=== PATIENT | male | born 1960 | race Caucasian/White ===

== ENCOUNTER 2018-12-24 12:16 | Observation (INO) | payer OTHER ==
[~2018-12-24] VITALS: Ht 167.6 cm; Wt 110.0 kg
[2018-12-24 12:31] LABS: BASOPHILS % (AUTO) 0.5 % (0.0-5.0); EOSINOPHILS % (AUTO) 1.2 % (0.0-8.0); HEMATOCRIT 38.6 % (42-54); LYMPHOCYTES % (AUTO) 32.6 % (21.0-51.0); MEAN CORPUSCULAR HEMOGLOBIN 28.7 pg (27.0-33.0); MEAN CORPUSCULAR HGB CONC 35.1 g/dL (32.0-36.0); MEAN CORPUSCULAR VOLUME 81.8 fL (79-99); MONOCYTES % (AUTO) 8.3 % (3.0-13.0); NEUTROPHILS % (AUTO) 57.4 % (40.0-77.0); PLATELET COUNT (AUTO) 267 K/uL (130-400); RED BLOOD CELL COUNT(AUTO) 4.72 MIL/uL (4.50-6.20); RED CELL DISTRIBUTION WIDTH 14.6 % (11.0-15.5); WHITE BLOOD COUNT (AUTO) 9.5 K/uL (4.8-10.8)
[2018-12-24] MEDS ORDERED: ASPIRIN 81MG TAB.CHEW ONE (12:47)
[2018-12-24] MEDS ORDERED: NITROGLYCERIN 1GM/1 INCH PACKET TD ONE (12:48)
[2018-12-24 12:50] LABS: BILIRUBIN,TOTAL 0.4 mg/dL (0.2-1.0); TOTAL PROTEIN, SERUM 7.2 g/dL (6.0-8.3)
[2018-12-24 14:21] LABS: APPEARANCE,URINE Clear (CLEAR); BILIRUBIN,URINE Negative (NEGATIVE); COLOR,URINE Yellow (YELLOW); GLUCOSE, URINE (UA) Negative (NEGATIVE); KETONES,URINE Negative (NEGATIVE); LEUKOCYTE ESTERASE ,URINE Negative (NEGATIVE); NITRATE,URINE Negative (NEGATIVE); OCCULT BLOOD,URINE Negative (NEGATIVE); PH,URINE 5.5 (5.0-8.0); PROTEIN,URINE Negative (NEGATIVE); UROBILINOGEN,URINE 0.2 mg/dL (0.2-1.0)
[2018-12-24] MEDS ORDERED: IOHEXOL 350 MG/ML 100ML INFUS..BTL IV ONE (14:40)
[2018-12-24] MEDS ORDERED: SODIUM CHLORIDE 0.9% 1000ML 1,000 ML IV ONE (14:45)
[2018-12-24] MEDS ORDERED: ONDANSETRON HCL 4 MG/2 ML VIAL IV PRN (15:45)
[2018-12-24] MEDS ORDERED: POTASSIUM CHLORIDE 20MEQ/100ML 100 ML IV PRN (15:45)
[2018-12-24] MEDS ORDERED: POTASSIUM CHLORIDE 10MEQ/100ML 100 ML IV PRN (15:45)
[2018-12-24] MEDS ORDERED: ACETAMINOPHEN 325 MG TAB PO PRN ×2 (15:45)
[2018-12-24] MEDS ORDERED: DEXTROSE 50%-WATER 50 ML DISP.SYRIN IV PRN (15:45)
[2018-12-24] MEDS ORDERED: LACTULOSE 20 GM/30 ML UDCUP PO PRN (15:45)
[2018-12-24] MEDS ORDERED: DIPHENHYDRAMINE HCL 25 MG CAPSULE PO PRN (15:45)
[2018-12-24] MEDS ORDERED: LIDOCAINE HCL-MPF 1% 2ML VIAL IVP PRN ×2 (15:45)
[2018-12-24] MEDS ORDERED: HYDRALAZINE HCL 20 MG/ML VIAL IV PRN (15:45)
[2018-12-24] MEDS ORDERED: GLUCAGON 1MG KIT 1 MG ML IM PRN (15:45)
[2018-12-24] MEDS ORDERED: POTASSIUM CHLORIDE 20 MEQ ERTAB PO PRN ×2 (15:45)
[2018-12-24] MEDS ORDERED: NITROGLYCERIN 0.4 MG SL TAB SL PRN (15:45)
[2018-12-24] MEDS ORDERED: POTASSIUM CHLORIDE 10% ELIXIR 20 MEQ/15 ML UDCUP PO PRN ×2 (15:45)
[2018-12-24 17:09] LABS: HEMOGLOBIN A1C 6.5 % (4.0-6.0)
[2018-12-24 17:19] LABS: ALANINE AMINOTRANSFERASE 22 U/L (12-78); ALBUMIN 3.6 g/dL (3.5-5.0); ASPARTATE AMINOTRANSFERASE 19 U/L (10-37); BILIRUBIN,TOTAL 0.3 mg/dL (0.2-1.0); CARBON DIOXIDE 28 mmol/L (21-32); CHLORIDE 104 mmol/L (101-111); CREATINE KINASE, TOTAL 71 U/L (21-232); CREATININE 0.9 mg/dL (0.5-1.5); GLOMERULAR FILTR. RATE CALC 92 mL/min (>60); GLUCOSE,RANDOM 70 mg/dL (70-105); MYOGLOBIN 37 ng/mL (10-92); POTASSIUM 3.8 mmol/L (3.5-5.1); SODIUM SERUM 141 mmol/L (136-145); TOTAL PROTEIN, SERUM 7.4 g/dL (6.0-8.3); TROPONIN I < 0.04 ng/mL (0.00-0.06); UREA NITROGEN, BLOOD 9 mg/dL (7-18)
[2018-12-24] MEDS: INSULIN HUMULIN R 100 UNIT/ML 3ML SQ SCH (21:00)
[2018-12-24] MEDS: METOPROLOL TARTRATE 25 MG TAB PO SCH (21:00)
[2018-12-24] MEDS: FAMOTIDINE 20MG TAB 20 MG TAB PO SCH (21:00)
[2018-12-24] MEDS ORDERED: ACETAMINOPHEN 325 MG TAB ONE (21:34)
[2018-12-24] MEDS ORDERED: FAMOTIDINE 20MG TAB 20 MG TAB ONE (21:34)
[2018-12-24 23:24] VITALS: BP 108/74
[2018-12-25 03:46] VITALS: BP 113/67
[2018-12-25] MEDS: INSULIN HUMULIN R 100 UNIT/ML 3ML SQ SCH (06:54)
[2018-12-25 07:30] VITALS: BP 111/68
[2018-12-25] MEDS ORDERED: ASPIRIN 325 MG TABLET PO SCH (09:00)
[2018-12-25] MEDS: METOPROLOL TARTRATE 25 MG TAB PO SCH (09:04)
[2018-12-25] MEDS: FAMOTIDINE 20MG TAB 20 MG TAB PO SCH (09:04)
[2018-12-25] MEDS ORDERED: TRAZ-187 PO (10:30)
[2018-12-25] MEDS ORDERED: PRAV40TA3 PO (10:30)
[2018-12-25] MEDS ORDERED: TRAM50TA4 PO (10:30)
[2018-12-25] MEDS ORDERED: GABA-533 PO (10:30)
[2018-12-25] MEDS ORDERED: GLIM2TAB3 PO (10:30)
[2018-12-25] MEDS ORDERED: TAMS-1 PO (10:30)
[2018-12-25] MEDS ORDERED: ASPI-555 PO (10:30)
[2018-12-25] MEDS ORDERED: SILD50TA PO (10:30)
[2018-12-25] MEDS ORDERED: LISI-613 PO (10:30)
[2018-12-25 11:00] VITALS: BP 108/52
--- NOTE | 2018-12-25 13:20 | NUR ---
PATIENT VOICED CONCERNS ABOUT WAITING TOO LONG TO BE FED AND MD NOT EXPLAINING PLAN OF CARE. I INFORMED PATIENT THAT MARTHA GRAFF IS CHECKING WITH HER SUPERVISING MD IF THEY WILL SEND HIM FOR STRESS TEST. PATIENT SAID THAT HE HAS BEEN TOLD THAT A RN TESTING WILL SEE HIM TODAY SINCE LAST NIGHT IN ER. I INFORMED PATIENT THAT THERE IS NO ORDER FOR CARDIOLOGY CONSULT AT THIS TIME. HE VOICED THAT HE PLANS TO SIGN HIMSELF OUT. I TOLD THE PATIENT THAT I WILL CALL MARTHA GRAFF TO ASK ONCE AGAIN IF A STRESS TEST IS PLANNED FOR TODAY OR IF DIET CAN BE ORDERED. HE SAID HE WILL WAIT.
--- NOTE | 2018-12-25 13:30 | NUR ---
MARTHA GRAFF IS MAKING HER ROUNDS. SHE EXPLAINS TO PATIENT THAT SHE HAD ORDERED FOR CARDIOLOGY TO BE CONSULTED AND FOR DIET TO BE STARTED. WE ARE WAITING ON CONSULT TO COME IN FOR RECOMMENDATIONS. PATIENT VOICED ONCE AGAIN HIS COMPLAINTS ABOUT WAITING TOO LONG FOR DIET TO BE STARTED AND THAT STRESS TEST WAS NEVER DONE IF MD HAD PLANNED TO DO ONE. MARTHA EXPLAINED IN DETAIL PLAN OF CARE. PATIENT WAS GIVEN A LUNCH TRAY.
--- NOTE | 2018-12-25 14:18 | NUR ---
PATIENT SIGNED AMA. EXPLAINED TO HIM THE RISKS AND CONSEQUENCES THAT WHICH INCLUDE HEART ATTACK, STROKE, AND/OR . INVOLVED IN LEAVING HOSPITAL AGAINST MEDICAL ADVICE. TELE PACK REMOVED AND RETURNED. RIGHT AC IV DISCONTINUED. TIP WAS INTACT. ALL BELONGINGS WERE PACKED.
--- NOTE | 2018-12-25 14:19 | NUR ---
MADE MARTHA MONROY NP AWARE THAT PATIENT SIGNED HIMSELF OUT AMA.
--- NOTE | 2018-12-25 17:00 | NUR ---
ADVISED OLEG HENRY CM ASSESSMENT DONE Addendum: 12/26/18 at 1932 by OTONIEL HERNANDEZ RN CM Amended: Links added.
== END 2018-12-25 14:00 | disposition left against medical advice (07) ==
LOC: EDH 12:16 → EDHIP 14:39 → 4CH 19:49
PROVIDERS: ADMIT Internal Medicine Critical Care Medicine; ATTEND Internal Medicine Critical Care Medicine
DX: I20.0 Unstable angina (principal); I10 Essential (primary) hypertension; E11.9 Type 2 diabetes mellitus without complications; E78.5 Hyperlipidemia, unspecified; M79.7 Fibromyalgia; Z83.3 Family history of diabetes mellitus; Z98.84 Bariatric surgery status; Z90.89 Acquired absence of other organs; Z90.49 Acquired absence of other specified parts of digestive tract; Z79.899 Other long term (current) drug therapy
CPT/HCPCS: 36415; 71045; 71275; 80053 ×2; 81003; 82550 ×2; 82948 ×2; 83036; 83874; 83880; 84484 ×3; 85025; 85378; 93005 ×4; 99284; G0378 ×23; J7030; Q9967

== ENCOUNTER → 2020-02-01 | Outpatient (CLI) | payer OTHER ==
[~2020-02-01] MED LIST: ASPI-556 PO; GABA-533 PO; GLIM2TAB30 PO; LISI-613 PO; PRAV40TA3 PO; SILD50TA PO; TAMS-1 PO; TRAM50TA4 PO; TRAZ-187 PO
== END | disposition home or self-care (01) ==
LOC: OIH 10:57
PROVIDERS: ATTEND Family Medicine
DX: R07.9 Chest pain, unspecified (principal); I10 Essential (primary) hypertension; M47.814 Spondylosis without myelopathy or radiculopathy, thoracic region
CPT/HCPCS: 71046

== ENCOUNTER 2020-09-02 17:17 | Observation (INO) | payer OTHER ==
[~2020-09-02] VITALS: Ht 167.6 cm; Wt 118.3 kg
[~2020-09-02 17:17] MED LIST changes: -LISI-613 PO; +LISI20TA24 PO
[2020-09-02 18:15] LABS: APPEARANCE,URINE Clear (CLEAR); BILIRUBIN,URINE Negative (NEGATIVE); COLOR,URINE Yellow (YELLOW); GLUCOSE, URINE (UA) Negative (NEGATIVE); KETONES,URINE Negative (NEGATIVE); LEUKOCYTE ESTERASE ,URINE Negative (NEGATIVE); NITRATE,URINE Negative (NEGATIVE); OCCULT BLOOD,URINE Negative (NEGATIVE); PROTEIN,URINE Negative (NEGATIVE); UROBILINOGEN,URINE 0.2 mg/dL (0.2-1.0)
[2020-09-02 18:23] LABS: BASOPHILS % (AUTO) 0.4 % (0.0-5.0); EOSINOPHILS % (AUTO) 1.6 % (0.0-8.0); HEMATOCRIT 36.4 % (42-54); LYMPHOCYTES % (AUTO) 33.2 % (21.0-51.0); MEAN CORPUSCULAR HEMOGLOBIN 28.3 pg (27.0-33.0); MEAN CORPUSCULAR HGB CONC 34.9 g/dL (32.0-36.0); MEAN CORPUSCULAR VOLUME 81.3 fL (79-99); NEUTROPHILS % (AUTO) 57.1 % (40.0-77.0); PLATELET COUNT (AUTO) 237 K/uL (130-400); RED BLOOD CELL COUNT(AUTO) 4.48 MIL/uL (4.50-6.20); RED CELL DISTRIBUTION WIDTH 15.1 % (11.0-15.5); WHITE BLOOD COUNT (AUTO) 9.1 K/uL (4.8-10.8)
[2020-09-02] MEDS ORDERED: DEXTROSE 50%-WATER 50 ML DISP.SYRIN IV ONE (18:35)
[2020-09-02 18:39] LABS: ALBUMIN 3.7 g/dL (3.5-5.0); BILIRUBIN,TOTAL 0.2 mg/dL (0.2-1.0); CREATININE 0.9 mg/dL (0.5-1.5); POTASSIUM 4.1 mmol/L (3.5-5.1)
[2020-09-02] MEDS ORDERED: ACETAMINOPHEN-CODEINE 300/30MG TAB PO PRN (19:45)
[2020-09-02] MEDS ORDERED: MAG HYDROX/AL HYDROX/SIMETH ES 30 ML SUSP UDCUP PO PRN (19:45)
[2020-09-02] MEDS ORDERED: ONDANSETRON HCL 4 MG/2 ML VIAL IV PRN (19:45)
[2020-09-02] MEDS ORDERED: ACETAMINOPHEN 325 MG TAB PO PRN ×2 (19:45)
[2020-09-02] MEDS ORDERED: NEOMY SULF/BACITRA/POLYMYXIN B 1 EACH PACKET TP SCH (19:45)
[2020-09-02] MEDS ORDERED: LACTULOSE 20 GM/30 ML UDCUP PO PRN (19:45)
[2020-09-02 20:08] LABS: ACETAMINOPHEN < 1 mcg/mL (10-29); ALCOHOL, BLOOD 114 mg/dL (0-10); SALICYLATE < 2.8 mg/dL (2.8-20.0)
[2020-09-02 20:15] LABS: AMPHET/METH SCREEN,URINE NEGATIVE (NEGATIVE); BARBITURATE SCREEN, URINE NEGATIVE (NEGATIVE); BENZODIAZEPINES SCREEN,URINE NEGATIVE (NEGATIVE); CANNABINOID SCREEN,URINE NEGATIVE (NEGATIVE); COCAINE SCREEN,URINE NEGATIVE (NEGATIVE); OPIATE SCREEN,URINE NEGATIVE (NEGATIVE); PHENCYCLIDINE SCREEN,URINE NEGATIVE (NEGATIVE)
[2020-09-02] MEDS ORDERED: MORPHINE SULFATE 2 MG/ML 1ML SYG IV PRN (20:15)
[2020-09-02] MEDS ORDERED: GLUCAGON 1MG KIT 1 MG ML IM PRN (20:45)
[2020-09-02] MEDS ORDERED: DEXTROSE 50%-WATER 50 ML DISP.SYRIN IV PRN (20:45)
[2020-09-02] MEDS: FAMOTIDINE 20MG TAB 20 MG TAB PO SCH (21:00)
[2020-09-03] MEDS ORDERED: MORPHINE SULFATE 2 MG/ML 1ML SYG ONE (01:54)
[2020-09-03 04:35] VITALS: BP 147/82
[2020-09-03 06:54] LABS: BASOPHILS % (AUTO) 0.6 % (0.0-5.0); HEMATOCRIT 36.7 % (42-54); LYMPHOCYTES % (AUTO) 30.6 % (21.0-51.0); MEAN CORPUSCULAR HEMOGLOBIN 27.1 pg (27.0-33.0); MEAN CORPUSCULAR HGB CONC 32.7 g/dL (32.0-36.0); MONOCYTES % (AUTO) 10.2 % (3.0-13.0); NEUTROPHILS % (AUTO) 56.3 % (40.0-77.0); PLATELET COUNT (AUTO) 213 K/uL (130-400); RED BLOOD CELL COUNT(AUTO) 4.42 MIL/uL (4.50-6.20); RED CELL DISTRIBUTION WIDTH 15.5 % (11.0-15.5); WHITE BLOOD COUNT (AUTO) 8.8 K/uL (4.8-10.8)
[2020-09-03 07:09] LABS: POTASSIUM 4.3 mmol/L (3.5-5.1)
[2020-09-03 08:00] VITALS: BP 135/77
[2020-09-03] MEDS ORDERED: ASPIRIN 81 MG EC TAB PO SCH (09:00)
[2020-09-03] MEDS ORDERED: ENOXAPARIN SODIUM 40 MG/0.4 ML SYRINGE SQ SCH (09:00)
[2020-09-03] MEDS ORDERED: LISINOPRIL 20 MG TABLET PO SCH (09:00)
[2020-09-03] MEDS ORDERED: TAMSULOSIN HCL 0.4 MG CAP.ER.24H PO SCH (09:00)
[2020-09-03] MEDS ORDERED: THIAMINE HCL 100 MG, FOLIC ACID 1 MG, M.V.I. IV [ADULT] 10 ML in SODIUM CHLORIDE 0.9% 1... IV SCH (09:30)
[2020-09-03] MEDS ORDERED: PHARMACY COMMUNICATION MISC PRN (09:30)
[2020-09-03] MEDS ORDERED: CHLORDIAZEPOXIDE HCL 25 MG CAP PO PRN (09:30)
[2020-09-03] MEDS ORDERED: HYDROCODONE/ACETAMINOPHEN 5/325 MG TAB PO PRN (09:30)
[2020-09-03 10:06] LABS: HEMOGLOBIN A1C 5.9 % (4.0-6.0)
[2020-09-03 12:00] VITALS: BP 148/86
[2020-09-03 16:00] VITALS: BP 137/78
[2020-09-03] MEDS ORDERED: TRAZODONE HCL 50 MG TAB PO PRN (16:30)
[2020-09-03] MEDS: FAMOTIDINE 20MG TAB 20 MG TAB PO SCH (20:19)
[2020-09-07] MEDS ORDERED: FOLI1 PO (09:56)
[2020-09-07] MEDS ORDERED: LEVO500T89 PO (09:56)
[2020-09-07] MEDS ORDERED: CALC-1009 PO (09:56)
[2020-09-07] MEDS ORDERED: FAMO20TA8 PO (09:56)
[2020-09-07] MEDS ORDERED: TRAM50TA4 PO (09:57)
== END 2020-09-03 21:06 | disposition left against medical advice (07) ==
LOC: EDH 17:17 → EDHIP 19:50 → 3BH 09-03 03:37
PROVIDERS: ADMIT Internal Medicine; ATTEND Internal Medicine
DX: S09.90XA Unspecified injury of head, initial encounter (principal); S20.411A Abrasion of right back wall of thorax, initial encounter; E11.649 Type 2 diabetes mellitus with hypoglycemia without coma; R41.3 Other amnesia; M25.511 Pain in right shoulder; E11.40 Type 2 diabetes mellitus with diabetic neuropathy, unspecified; F32.9 Major depressive disorder, single episode, unspecified; M79.7 Fibromyalgia; I10 Essential (primary) hypertension; E66.01 Morbid (severe) obesity due to excess calories; M17.0 Bilateral primary osteoarthritis of knee; Z90.49 Acquired absence of other specified parts of digestive tract; Z96.653 Presence of artificial knee joint, bilateral; Z98.84 Bariatric surgery status; Z79.82 Long term (current) use of aspirin; Z79.84 Long term (current) use of oral hypoglycemic drugs; Z79.899 Other long term (current) drug therapy; W18.39XA Other fall on same level, initial encounter; Y93.89 Activity, other specified; Y92.89 Other specified places as the place of occurrence of the external cause; Z68.41 Body mass index [BMI] 40.0-44.9, adult
CPT/HCPCS: 36415 ×2; 70450; 71045; 72125; 73000; 73010; 73030; 73070; 73522; 73560; 80048; 80053; 80305; 81003; 82948 ×2; 83036; 84443; 84484; 85025 ×2; 93005; 96365; 96366; 96372; 97039 ×2; 97161; 99285; G0378 ×25; G0481; G8978; G8979; G8980; G8981; G8982; G8983; J1650; J3411; J3490; J7030; J7070; 96374

== ENCOUNTER 2020-09-08 11:32 | Day surgery (SDC) | payer OTHER ==
[2020-09-05 10:32] LABS: BASOPHILS % (AUTO) 0.7 % (0.0-5.0); EOSINOPHILS % (AUTO) 1.6 % (0.0-8.0); HEMATOCRIT 37.6 % (42-54); LYMPHOCYTES % (AUTO) 30.9 % (21.0-51.0); MEAN CORPUSCULAR HEMOGLOBIN 28.5 pg (27.0-33.0); MEAN CORPUSCULAR HGB CONC 33.8 g/dL (32.0-36.0); MEAN CORPUSCULAR VOLUME 84.3 fL (79-99); MONOCYTES % (AUTO) 9.5 % (3.0-13.0); NEUTROPHILS % (AUTO) 56.8 % (40.0-77.0); PLATELET COUNT (AUTO) 231 K/uL (130-400); RED BLOOD CELL COUNT(AUTO) 4.46 MIL/uL (4.50-6.20); RED CELL DISTRIBUTION WIDTH 15.7 % (11.0-15.5); WHITE BLOOD COUNT (AUTO) 7.4 K/uL (4.8-10.8)
[2020-09-05 10:35] LABS: CREATININE 1.2 mg/dL (0.5-1.5); POTASSIUM 4.2 mmol/L (3.5-5.1)
[2020-09-05 10:40] LABS: INR 0.98 (0.85-1.15); PROTHROMBIN TIME 10.7 SEC (9.6-11.6)
[2020-09-05 10:42] LABS: APPEARANCE,URINE Clear (CLEAR); BILIRUBIN,URINE Negative (NEGATIVE); COLOR,URINE Yellow (YELLOW); GLUCOSE, URINE (UA) Negative (NEGATIVE); KETONES,URINE Negative (NEGATIVE); LEUKOCYTE ESTERASE ,URINE Negative (NEGATIVE); NITRATE,URINE Negative (NEGATIVE); OCCULT BLOOD,URINE Negative (NEGATIVE); PROTEIN,URINE Negative (NEGATIVE)
[2020-09-05 10:42] LABS: PARTIAL THROMBOPLASTIN TIME 26.2 SEC (26.3-35.5)
[2020-09-07 07:58] VITALS: BP 143/80
[2020-09-08] VITALS (14 sets, daily range): BP systolic 108–128; BP diastolic 54–73
[~2020-09-08] VITALS: Ht 167.6 cm; Wt 118.3 kg
[~2020-09-08 11:32] MED LIST changes: -ASPI-556 PO; +CALC-1009 PO; +CEFTRIAXONE SODIUM 1 GM IVP ONE; +FAMO20TA8 PO; +FOLI1 PO; +GENTAMICIN 80 MG/NS 100 ML PB 100 ML IV ONE; +LEVO500T89 PO; -SILD50TA PO; -TRAZ-187 PO
[2020-09-08] MEDS ORDERED: SODIUM CHLORIDE 0.9% 1000ML 1,000 ML IV ONE (11:45)
[2020-09-08] MEDS ORDERED: CEFTRIAXONE SODIUM 1 GM ONE (11:46)
[2020-09-08] MEDS ORDERED: GENTAMICIN 80 MG/NS 100 ML PB 100 ML IV SCH (12:00)
[2020-09-08] MEDS ORDERED: CEFTRIAXONE SODIUM 1 GM IVP SCH (12:00)
[2020-09-08] MEDS ORDERED: SUCCINYLCHOLINE CHLORIDE 20 MG/ML 10 ML VIAL ONE (14:42)
[2020-09-08] MEDS ORDERED: LIDOCAINE PF 2% 5ML ABBOJECT ONE (14:42)
[2020-09-08] MEDS ORDERED: DEXAMETHASONE SOD PHOSPHATE 10MG/ML 1ML VIAL ONE (14:42)
[2020-09-08] MEDS ORDERED: MIDAZOLAM HCL 1 MG/ML 2ML VIAL ONE (14:43)
[2020-09-08] MEDS ORDERED: PROPOFOL 10 MG/ML 20ML VIAL IV ONE (14:43)
[2020-09-08] MEDS ORDERED: GLYCOPYRROLATE 1 MG/5 ML SYRINGE ONE (14:43)
[2020-09-08] MEDS ORDERED: ROCURONIUM 10MG/1ML SYR 10 MG/ML ML ONE (14:43)
[2020-09-08] MEDS ORDERED: NEOSTIGMINE 5MG/5ML SYR IV ONE (14:43)
[2020-09-08] MEDS ORDERED: ONDANSETRON HCL 4 MG/2 ML VIAL ONE (14:43)
[2020-09-08] MEDS ORDERED: FENTANYL CITRATE PF 50 MCG/1 ML 2ML VIAL ONE (14:44)
[2020-09-08] MEDS ORDERED: EPHEDRINE SULFATE 50 MG/ML AMPULE ONE (17:00)
== END 2020-09-08 18:45 | disposition home or self-care (01) ==
LOC: DAH 11:32
PROVIDERS: ATTEND Urology
DX: N40.1 Benign prostatic hyperplasia with lower urinary tract symptoms (principal); R39.12 Poor urinary stream; G47.33 Obstructive sleep apnea (adult) (pediatric); E11.9 Type 2 diabetes mellitus without complications; K21.9 Gastro-esophageal reflux disease without esophagitis; Z79.01 Long term (current) use of anticoagulants; Z79.899 Other long term (current) drug therapy; Z20.828 Contact with and (suspected) exposure to other viral communicable diseases
CPT/HCPCS: 36415; 52450; 71045; 80048; 81003; 82948 ×2; 85025; 85610; 85730; 87088; 93005; A4215; A4221; A4222; A4223; A4354; A4358; A4663; A6260; C1769; C9803; J0330; J0696; J1100; J1580; J2001; J2250; J2405; J2704; J2710; J3010; J3490 ×2; J7030; J7120; U0003

== ENCOUNTER 2021-12-13 18:00 | Emergency (ER) | payer MEDICARE, OTHER ==
[~2021-12-13] VITALS: Ht 165.1 cm; Wt 158.8 kg
[~2021-12-13 18:00] MED LIST changes: -CEFTRIAXONE SODIUM 1 GM IVP ONE; -GENTAMICIN 80 MG/NS 100 ML PB 100 ML IV ONE; +LEVO-70 PO; -LEVO500T89 PO
[2021-12-13] MEDS ORDERED: ROCURONIUM BROMIDE 10MG/1ML 5ML VL IV ONE (18:01)
[2021-12-13] MEDS ORDERED: ETOMIDATE 20MG VIAL IVP ONE (18:01)
[2021-12-13 18:16] LABS: BASOPHILS % (AUTO) 0.3 % (0.0-5.0); EOSINOPHILS % (AUTO) 1.2 % (0.0-8.0); HEMATOCRIT 37.2 % (42-54); LYMPHOCYTES % (AUTO) 38.1 % (21.0-51.0); MEAN CORPUSCULAR HEMOGLOBIN 28.8 pg (27.0-33.0); MEAN CORPUSCULAR HGB CONC 34.9 g/dL (32.0-36.0); MEAN CORPUSCULAR VOLUME 82.5 fL (79-99); NEUTROPHILS % (AUTO) 53.9 % (40.0-77.0); PLATELET COUNT (AUTO) 261 K/uL (130-400); RED BLOOD CELL COUNT(AUTO) 4.51 MIL/uL (4.50-6.20); RED CELL DISTRIBUTION WIDTH 14.7 % (11.0-15.5); WHITE BLOOD COUNT (AUTO) 8.6 K/uL (4.8-10.8)
[2021-12-13 18:25] LABS: CREATININE 0.9 mg/dL (0.5-1.5); POTASSIUM 3.5 mmol/L (3.5-5.1)
[2021-12-13] MEDS: ETOMIDATE 20MG VIAL IVP SCH ×2 (18:26→18:34)
[2021-12-13 18:27] LABS: INR 0.96 (0.85-1.15); PROTHROMBIN TIME 10.5 SEC (9.6-11.6)
[2021-12-13 18:28] LABS: PARTIAL THROMBOPLASTIN TIME 26.6 SEC (26.3-35.5)
[2021-12-13] MEDS ORDERED: MIDAZOLAM HCL 1 MG/ML 2ML VIAL ONE (18:30)
[2021-12-13] MEDS ORDERED: FENTANYL CITRATE PF 50 MCG/1 ML 2ML VIAL ONE (18:30)
[2021-12-13 18:33] LABS: ALBUMIN 3.9 g/dL (3.5-5.0); TOTAL PROTEIN, SERUM 7.4 g/dL (6.0-8.3)
[2021-12-13] MEDS ORDERED: FENTANYL 2500MCG+NS 250ML 250 ML IV ONE (18:33)
[2021-12-13 18:35] LABS: CREATINE KINASE, TOTAL 91 U/L (21-232); LDL DIRECT 142 mg/dL (0-99)
[2021-12-13 18:39] LABS: APPEARANCE,URINE CLEAR (CLEAR); BILIRUBIN,URINE NEGATIVE (NEGATIVE); COLOR,URINE YELLOW (YELLOW); GLUCOSE, URINE (UA) >=1000 mg/dL (NEGATIVE); KETONES,URINE NEGATIVE (NEGATIVE); LEUKOCYTE ESTERASE ,URINE NEGATIVE (NEGATIVE); NITRATE,URINE NEGATIVE (NEGATIVE); OCCULT BLOOD,URINE NEGATIVE (NEGATIVE); PH,URINE 5.5 (5.0-8.0); PROTEIN,URINE NEGATIVE (NEGATIVE); UROBILINOGEN,URINE 0.2 mg/dL (0.2-1.0)
[2021-12-13 18:46] LABS: AMPHET/METH SCREEN,URINE NEGATIVE (NEGATIVE); BARBITURATE SCREEN, URINE NEGATIVE (NEGATIVE); BENZODIAZEPINES SCREEN,URINE NEGATIVE (NEGATIVE); CANNABINOID SCREEN,URINE NEGATIVE (NEGATIVE); COCAINE SCREEN,URINE NEGATIVE (NEGATIVE); PHENCYCLIDINE SCREEN,URINE NEGATIVE (NEGATIVE)
[2021-12-13] MEDS ORDERED: PROPOFOL 1000 MG/100 ML 100 ML IV ONE (18:59)
[2021-12-13] MEDS ORDERED: MIDAZOLAM 50MG-0.9% NS 50ML 50 ML IV SCH (19:00)
[2021-12-13 19:04] LABS: RBC,URINE 0-1 /HPF (0-1); WBC,URINE 0-1 /HPF (0-1)
[2021-12-13 19:05] LABS: BACTERIA,URINE Rare /HPF (None Seen); SQUAMOUS EPITHELIAL CELL,UR None Seen /HPF (0-2)
[2021-12-13] MEDS ORDERED: IOHEXOL 350 MG/ML 100ML INFUS..BTL IV ONE (19:20)
[2021-12-13] MEDS ORDERED: PROPOFOL 1000 MG/100 ML 100 ML IV SCH (19:30)
[2021-12-14 00:12] VITALS: BP 102/60
[2021-12-16 15:11] LABS: OPIATES SCREEN URINE Negative ng/mL (Cutoff=300)
== END 2021-12-14 01:36 | disposition short-term general hospital (02) ==
LOC: EDH 18:00
DX: R41.82 Altered mental status, unspecified (principal); R29.810 Facial weakness; R51.9 Headache, unspecified; Z20.822 Contact with and (suspected) exposure to COVID-19; Z79.899 Other long term (current) drug therapy
CPT/HCPCS: 99285; 82550; 83721; 84484; 80053; 83880; 80305; 85025; 85610; 85730; 87804 ×2; 81001; 36415; 87635; 71045 ×3; 70450; 70496; 70498; 93005 ×2; 31500; C9803; J3010; J3490 ×2; J2704; Q9967; A9900; 94002; 94003; J2250

== ENCOUNTER → 2021-12-20 | Outpatient (CLI) | payer OTHER ==
[2021-12-20 14:25] LABS: BASOPHILS % (AUTO) 0.5 % (0.0-5.0); EOSINOPHILS % (AUTO) 2.2 % (0.0-8.0); HEMATOCRIT 40.1 % (42-54); LYMPHOCYTES % (AUTO) 32.3 % (21.0-51.0); MEAN CORPUSCULAR HEMOGLOBIN 28.3 pg (27.0-33.0); MEAN CORPUSCULAR HGB CONC 33.4 g/dL (32.0-36.0); MEAN CORPUSCULAR VOLUME 84.8 fL (79-99); MONOCYTES % (AUTO) 6.3 % (3.0-13.0); NEUTROPHILS % (AUTO) 58.4 % (40.0-77.0); PLATELET COUNT (AUTO) 277 K/uL (130-400); RED BLOOD CELL COUNT(AUTO) 4.73 MIL/uL (4.50-6.20); RED CELL DISTRIBUTION WIDTH 14.4 % (11.0-15.5); WHITE BLOOD COUNT (AUTO) 7.8 K/uL (4.8-10.8)
[2021-12-20 14:37] LABS: HEMOGLOBIN A1C 9.1 % (4.0-6.0)
[2021-12-20 14:57] LABS: B-TYPE NATRIURETIC PEPTIDE 13 pg/mL (0-100)
[2021-12-20 15:07] LABS: ALBUMIN 3.8 g/dL (3.5-5.0); CREATININE 0.9 mg/dL (0.5-1.5); PHOSPHORUS 3.7 mg/dL (2.5-4.9); POTASSIUM 3.8 mmol/L (3.5-5.1); THYROID STIMULATING HORMONE 0.34 uIU/mL (0.36-3.74); TOTAL PROTEIN, SERUM 7.8 g/dL (6.0-8.3)
[2021-12-20 20:50] LABS: HEPATITIS A IGM ANTIBODY Non-Reactive (Nonreactive); HEPATITIS B CORE IGM ANTIBODY Non-Reactive (Negative); HEPATITIS B SURFACE ANTIGEN Non-Reactive (Nonreactive); HEPATITIS C ANTIBODY Non-Reactive (Nonreactive)
== END | disposition home or self-care (01) ==
LOC: LAB 13:29
PROVIDERS: ATTEND Family Medicine
DX: I10 Essential (primary) hypertension (principal); Z13.89 Encounter for screening for other disorder; E78.5 Hyperlipidemia, unspecified; E11.69 Type 2 diabetes mellitus with other specified complication; N40.0 Benign prostatic hyperplasia without lower urinary tract symptoms; R53.1 Weakness; Z79.899 Other long term (current) drug therapy
CPT/HCPCS: 36415; 80053; 80061; 80074; 82043; 82306; 82607; 83036; 83090; 83880; 84100; 84153; 84154; 84439; 84443; 85025